=== PATIENT | male | born 1995 | race Hispanic/Latino ===

== ENCOUNTER 2018-05-09 11:26 | Emergency (ER) | payer SELFPAY ==
[2018-05-09 11:36] VITALS: BP 124/88
[2018-05-09] MEDS ORDERED: MOTRIN PO ONE (12:07)
[2018-05-09] MEDS ORDERED: ULTRAM PO ONE (12:07)
--- NOTE | 2018-05-09 12:07 | XRay Report ---
RIGHT SHOULDER, 3 VIEWS: HISTORY: right shoulder pain. Normal bone mineralization. No acute osseous injury or joint pathology is detected. The distal right clavicle appears slightly elevated with respect to the acromion which could represent ligamentous injury. The soft tissues are unremarkable. IMPRESSION: No fracture or dislocation. Question ligamentous injury at the a.c. joint.
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
== END 2018-05-09 12:20 | disposition home or self-care (01) ==
LOC: ED 11:26
DX: S49.91XA Unspecified injury of right shoulder and upper arm, initial encounter (principal); F17.200 Nicotine dependence, unspecified, uncomplicated; Y04.8XXA Assault by other bodily force, initial encounter; Y93.89 Activity, other specified; Y92.89 Other specified places as the place of occurrence of the external cause; Y99.8 Other external cause status
CPT/HCPCS: 99283